=== PATIENT | female | born 1990 | race Caucasian/White ===

== ENCOUNTER 2017-10-29 21:09 | Inpatient (IN) | payer BC ==
[2017-10-29] MEDS ORDERED: MISOPROSTOL 200 MCG TAB PR PRN (21:39)
[2017-10-29] MEDS ORDERED: TERBUTALINE SULFATE 1 MG/ML VIAL IV PRN (21:39)
[2017-10-29] MEDS ORDERED: LR 1,000 ML IV PRN (21:39)
[2017-10-29] MEDS ORDERED: OXYTOCIN/NORMAL SALINE 1,000 ML IV PRN (21:39)
[2017-10-29] MEDS ORDERED: OLIVE OIL 118 ML BTL MISC PRN (21:39)
[2017-10-29] MEDS ORDERED: EPSOM SALT 454 GM TP PRN (21:39)
[2017-10-29] MEDS ORDERED: LIDOCAINE 1% 300 MG/30 ML SDV SC PRN (21:39)
[2017-10-29 22:19] LABS: PLATELET COUNT 190 10^3/uL (150-400)
[2017-10-29] MEDS ORDERED: OXYTOCIN 10 UNIT/ML VIAL ONE (22:44)
[2017-10-29] MEDS ORDERED: TERBUTALINE SULFATE 1 MG/ML VIAL ONE (22:44)
[2017-10-29] MEDS ORDERED: AMMONIA AROMATIC 1 EACH AMP IH ONE (22:44)
[2017-10-29] MEDS ORDERED: LIDOCAINE 1% 300 MG/30 ML SDV ONE (22:44)
[2017-10-29] MEDS ORDERED: OLIVE OIL 118 ML BTL ONE (22:44)
[2017-10-29] MEDS ORDERED: MISOPROSTOL 200 MCG TAB ONE (22:44)
[2017-10-30] MEDS ORDERED: fentaNYL 100 MCG/2 ML INJ ONE (02:52)
[2017-10-30] MEDS ORDERED: PHENYLEPHRINE HCL 100 MCG/ML SYR ONE (02:53)
[2017-10-30] MEDS ORDERED: BUPIVACAINE 0.25% 30 ML SDV ONE (02:53)
--- NOTE | 2017-10-30 02:59 | GHP ---
[f rep st] HISTORY AND PHYSICAL DATE OF ADMISSION: 10/29/2017 HISTORY UPON PRESENTATION: The patient is a 27-year-old, G1, P0, at 40+ weeks' gestation with an est imated due date of 10/26/2017 who presents in early active labor. The patient had milder contraction s beginning about 4:30 p.m., however, really increased in intensity approximately 7:30 p.m., occurrin g every 3 minutes with rapid increase in intensity. Bag of water intact. No bleeding. Good m ovement. The patient's history of GBS culture was negative. Upon presentation to Labor and Delivery , the patient was 3 cm dilated, 70% effaced, -2 station. The patient desired to manage labor initial ly in the tub and has been in the tub since admission. The patient had a followup exam several hours later and was 5 cm dilated, 100% effaced, at -1 station. The patient still desires to use tub as th e management for her pain. CARE: The patient has been with [facility] since transfer from [place] at appro ximately 30 weeks' gestation. The patient has a history of celiac disease and her symptoms have been managed well by just avoiding gluten dietarily. Uncomplicated care. PAST OBSTETRICAL LABS: Maternal blood type B positive with negative antibody screen. RPR nonreactiv e. Rubella immune. Hepatitis B surface antigen negative. HIV negative. Cystic fibrosis, SMA, frag ile X all negative. Initial hematocrit 41% with followup drop to 37%. TSH was normal. Urinalysis a nd culture were normal. Verifi testing was negative with MSAFP negative. 1-hour Glucola was normal. GBS culture negative. PAST MEDICAL HISTORY: Celiac disease as noted above. History of asthma that was felt to be stress i nduced with no issues recently. History of migraines with aura but none in the . History o f an abnormal Pap smear 3 years ago with a colposcopy that was negative. PAST SURGICAL HISTORY: Odontectomy. The patient with a history of a traumatic horseback riding inci dent where she incurred a broken back with a concussion and syncope thereafter. ALLERGIES: Amoxicillin, causing a rash. CURRENT MEDICATIONS: vitamins with stool softener p.r.n. SOCIAL HISTORY: The patient is , lives with her , Carlton. The patient works full-time a [employer]. The patient is a nonsmoker. No alcohol or drug use. REVIEW OF SYSTEMS: A 10-point review done with pertinent positives and negatives noted above. PHYSICAL EXAMINATION: GENERAL: Upon admission, the patient is a well-developed, well-nourished whit e female in distress with painful contractions. VITAL SIGNS: The patient is afebrile. Initial bloo d pressure was 136/88 with followup that was in the 100s over 50s. heart tones have been with spot checks and have previously shown a reactive pattern with good variability and acceleration, with the baseline in the 130s. Contractions every 2-4 minutes. PELVIC: No exam done currently. EXTREM ITIES: Nontender. No edema. ASSESSMENT: Intrauterine at 40+ weeks' gestation with active labor. Bag of water intact. Group B streptococcus negative. Natural pain control with the tub at this time. PLAN: The patient knows her options for pain management and is not interested in changing from the t ub at this time. We will recheck her cervix in an hour or so to ensure that she is making progress. Expect vaginal delivery. /[id number]/MODL
[2017-10-30] MEDS ORDERED: fentaNYL 200 MCG, BUPIVACAINE 0.5% 20 ML in NS 100 ML EP SCH (03:00)
[2017-10-30] MEDS ORDERED: PHENYLEPHRINE HCL 100 MCG/ML SYR IVP PRN (03:37)
[2017-10-30] MEDS ORDERED: ONDANSETRON 4 MG/2 ML VIAL IVP PRN (03:37)
[2017-10-30] MEDS ORDERED: NALOXONE HCL 0.4 MG/ML INJ IVP PRN (03:37)
--- NOTE | 2017-10-30 03:37 | PREANESOB ---
Obstetric Pre-Anesthesia Info - General Info Proposed Procedure: CSE : 1 Para: 0 AMRCUS: 10/26/17 Gestational Age: 40 week(s) and 3 day(s) - Info Status: Full Term Monitors: External FHR Pattern: Reassuring - Labor Status Cervical Dilation per last OB SVE: 5 Magnesium Sulfate in Use: No Indications for Labor Analgesia: Pain Control Labor Epidural: Proposed Anesthesia Allergies/Adverse Reactions: Allergy/AdvReac Type Severity Reaction Status Date / Time amoxicillin Allergy Verified 10/29/17 21:39 Visit Medications: Generic Name Dose Route Start Last Admin Trade Name Freq PRN Reason Stop Dose Admin Lactated Ringer's 1,000 mls @ 0 mls/hr 10/29/17 21:39 Lr IV 10/30/17 21:38 PRN PRN SEE PROTOCOL CONDITIONS Protocol Per Protocol Oxytocin/Sodium Chloride 1,000 mls @ 0 mls/hr 10/29/17 21:39 Pitocin 20 Units/Ns (Premix) IV PRN PRN Post Bleeding Per Protocol Fentanyl 200 mcg/ Bupivacaine 100 mls @ 0 mls/hr 10/30/17 03:00 HCl 20 ml/ Sodium Chloride EP 11/09/17 02:59 CONT MAYRA Protocol As Directed Ibuprofen 600 mg 10/29/17 21:39 Motrin PO 04/27/18 21:38 Q6HRS PRN post , inflammation Lidocaine HCl 300 mg 10/29/17 21:39 Lidocaine Hcl 1% SC 04/27/18 21:38 ONCE PRN episiotomy Magnesium Sulfate 454 gm 10/29/17 21:39 Epsom Salt TP 04/27/18 21:38 Q1H PRN perineal discomfort Misoprostol 800 - 1,000 mcg 10/29/17 21:39 Cytotec MD ONCE PRN Vaginal Atony/Bleeding [place] Oil 118 ml 10/29/17 21:39 Sweet Oil MISC 04/27/18 21:38 ONCE PRN perineal massage Terbutaline Sulfate 0.25 mg 10/29/17 21:39 Brethine IV 04/27/18 21:38 ONCE PRN Tachysystole Discontinued Medications Generic Name Dose Route Start Last Admin Trade Name Freq PRN Reason Stop Dose Admin Bupivacaine HCl Confirm 10/30/17 02:53 Sensorcaine 0.25% Sdv Administered 10/30/17 02:54 Dose 30 ml .ROUTE .STK-MED ONE Fentanyl Confirm 10/30/17 02:52 Sublimaze Administered 10/30/17 02:53 Dose 100 mcg .ROUTE .STK-MED ONE Lidocaine HCl Confirm 10/29/17 22:44 Lidocaine Hcl 1% Administered 10/29/17 22:45 Dose 300 mg .ROUTE .STK-MED ONE Misoprostol Confirm 10/29/17 22:44 Cytotec Administered 10/29/17 22:45 Dose 1,000 mcg .ROUTE .STK-MED ONE [place] Oil Confirm 10/29/17 22:44 Sweet Oil Administered 10/29/17 22:45 Dose 118 ml .ROUTE .STK-MED ONE Oxytocin Confirm 10/29/17 22:44 Pitocin Administered 10/29/17 22:45 Dose 40 unit .ROUTE .STK-MED ONE Phenylephrine HCl Confirm 10/30/17 02:53 Neosynephrine Administered 10/30/17 02:54 Dose 1,000 mcg .ROUTE .STK-MED ONE Terbutaline Sulfate Confirm 10/29/17 22:44 Brethine Administered 10/29/17 22:45 Dose 1 mg .ROUTE .STK-MED ONE - Anesthesia History Response to Local Anesthetics: Normal Anesthesia & Operative History: No Prior Problems Family Anesthesia History: Negative - Social History Substance Use/Abuse: Denies - Vital Signs Height/Weight (Nursing): Height 165.1 cm Weight 68.039 kg - Focused Exam Neck exam: FROM Mallampati Score: Class 2 Mouth exam: normal dental/mouth exam Pulmonary: no respiratory distress Cardiovascular: regular rate and rhythym Labs: 10/29/17 22:00 Patient ABO/Rh B POSITIVE 10/29/17 23:10 - Plan Consent Signed and on Chart: Yes Patient/Guardian Understands and Agrees to Plan: Yes Urgent/Emergent Case: Lashon moctezuma completed preop but documented later for safe timely pt care
[2017-10-30] MEDS ORDERED: LR 500 ML IV SCH (04:00)
[2017-10-30] MEDS ORDERED: fentaNYL 2MCG/ML/BUP 0.1% RTU 100 ML EP SCH (04:00)
[2017-10-30] MEDS ORDERED: OXYTOCIN/NS *STANDARD DOSE PROTOCOL IV SCH (05:30)
--- NOTE | 2017-10-30 07:58 | OBPROG ---
Labor Progress Note Assessment/Plan: Assessment: 27yo with IUP@ 40-4wks Active labor GBS Negative Cat 2 [address] Plan: reassess 1-2hr/PRN anticipate 10/30/17 07:59 Subjective/Intrapartum Course: 10/30/17 07:59 pt doing well, comfortable with RANI. FLOYD Vincent, at BS and supportive. Objective: 10/29/17 22:00 Patient ABO/Rh B POSITIVE 10/29/17 23:10 - SVE Dilation (cm): 9 Effacement (%): 90 Station: -1 Membranes: SROM Amniotic Fluid Color: Clear - Contraction Pattern Assessment Current Contraction Pattern: Regular - FHR Assessment Triplett FHR (bpm): 150 FHR Pattern Variability: Moderate FHR Category: 2 Oxytocin Orders Assessment - Pre-Induction/Augmentation Assessment Gestational Age: 40 week(s) and 3 day(s) ICD10 Worksheet Patient Problems: Problems Problem Status Onset Labor without complication Acute Supervision of normal first Acute - ICD10 Problem Qualifiers (1) Labor without complication (2) Supervision of normal first
--- NOTE | 2017-10-30 09:49 | OBPROG ---
Labor Progress Note Assessment/Plan: Assessment: 27yo with IUP@ 40-4wks Active labor GBS Negative Cat 2 F[address] Plan: reassess 1-2hr, start pushing anticipate 10/30/17 07:59 10/30/17 10:32 Subjective/Intrapartum Course: 10/30/17 07:59 pt doing well, comfortable with RANI. FLOYD Vincent, at BS and supportive. Denies any pressure or urge to push. 10/30/17 10:33 Objective: 10/29/17 22:00 Patient ABO/Rh B POSITIVE 10/29/17 23:10 - SVE Membranes: SROM Amniotic Fluid Color: Clear - Contraction Pattern Assessment Current Contraction Pattern: Regular - FHR Assessment Triplett FHR (bpm): 150 (early and variable decels noted) FHR Pattern Variability: Moderate FHR Category: 2 Oxytocin Orders Assessment - Pre-Induction/Augmentation Assessment Gestational Age: 40 week(s) and 3 day(s) ICD10 Worksheet Patient Problems: Problems Problem Status Onset Labor without complication Acute Supervision of normal first Acute - ICD10 Problem Qualifiers (1) Labor without complication (2) Supervision of normal first
[2017-10-30] MEDS ORDERED: HYDROCORTISONE 0.5% CREAM TP PRN (12:19)
[2017-10-30] MEDS ORDERED: HYDROCODONE/APAP 5/325 TAB PO PRN (12:19)
[2017-10-30] MEDS ORDERED: SIMETHICONE 80 MG TAB CHEW PO PRN (12:19)
[2017-10-30] MEDS ORDERED: ACETAMINOPHEN 325 MG TAB PO PRN (12:19)
--- NOTE | 2017-10-30 12:19 | OBDEL ---
Info Type: Vaginal Presentation at Delivery: Vertex L&D Analgesia/Anesthesia Type: Epidural GBS+: No Intrapartum Medications: Generic Name Dose Route Start Last Admin Trade Name Freq PRN Reason Stop Dose Admin Lactated Ringer's 1,000 mls @ 0 mls/hr 10/29/17 21:39 10/30/17 03:00 Lr IV 10/30/17 21:38 1,000 mls PRN PRN Administration SEE PROTOCOL CONDITIONS Protocol Per Protocol Lactated Ringer's 500 mls @ 0 mls/hr 10/30/17 04:00 10/30/17 05:31 Lr IV 04/28/18 03:59 500 mls CONT MAYRA Administration As Directed Oxytocin/Sodium Chloride 500 mls @ 0 mls/hr 10/30/17 05:30 10/30/17 05:27 Pitocin 30 Units/Ns (Premix) IV 04/28/18 05:29 500 mls CONT MAYRA Administration Protocol Per Protocol Phenylephrine HCl 100 mcg 10/30/17 03:37 10/30/17 08:37 Neosynephrine IVP 04/28/18 03:36 100 mcg .Q2M PRN Administration Hypotension - Hospital Course Intrapartum: 10/30/17 07:59 pt doing well, comfortable with FLOYD Shankar, at BS and supportive. Denies any pressure or urge to push. 10/30/17 10:33 Indications for Delivery: Spontaneous Labor Vaginal Delivery - Delivery Provider Delivery Physician/CNM: Tayler Melgar - Labor and Delivery Onset of Contractions Date: 10/29/17 Onset of Contractions Time: 16:00 Onset of Contractions Type: Augmented Rupture of Membranes Date: 10/29/17 Rupture of Membranes Time: 04:15 Rupture of Membranes Type: Spontaneous Amniotic Fluid Color: Clear Dilation Complete Date: 10/29/17 Dilation Complete Time: 09:30 Placenta Delivery Date: 10/29/17 Placenta Delivery Time: 11:38 Total Hours of Labor: -4 Vaginal Sponge Count Correct: Yes Vaginal Needle Count Correct: Yes Vaginal Sweep Performed: Yes EBL: 150 - Medications Labor Augmentation/Induction Indication: Inadequate Ctx Strength [place] Data MARCUS: 10/26/17 Gestational Age: 41 week(s) and 0 day(s) Triplett Delivery Date: 10/30/17 Delivery Time: 11:30 Sex of Infant: Male [place] Weight (gm): 3548 kg Score (1 Min): 8 Score (5 Min): 9 ICD10 Worksheet Patient Problems: Problems Problem Status Onset Acute blood loss anemia Acute Labor without complication Acute hemorrhage, delivered, current hospitalization Acute Supervision of normal first Acute - ICD10 Problem Qualifiers (1) Labor without complication (2) Supervision of normal first
[2017-10-30] MEDS: IBUPROFEN 600 MG TAB PO PRN ×2 (13:22→19:49)
--- NOTE | 2017-10-30 14:09 | POSTANESTH ---
Post Anesthetic Evaluation Cardiovascular Status: Normal, Stable Respiratory Status: Normal, Stable Level of Consciousness/Mental Status: Can Participate in Eval Pain Control: Adequate, Prn Tx Ordered Nausea/Vomiting Control: Adequate, Prn Tx Ordered Complications Possibly Related to Anesthesia: None Noted Notes: epidural out and level fading.
--- NOTE | 2017-10-30 14:10 | PDMN ---
Medical Necessity Medical necessity: C/M review: Patient meets IN[place] criteria [place] [facility] [id number] Vaginal delivery: viable male .
[2017-10-30] MEDS ORDERED: CLINDAMYCIN 900 MG/DEXTROSE 50 ML IV ONE (15:29)
[2017-10-30] MEDS ORDERED: METHYLERGONOVINE MAL 0.2 MG/ML INJ ONE (15:47)
[2017-10-30] MEDS ORDERED: METHYLERGONOVINE MAL 0.2 MG/ML INJ IM ONE (16:04)
[2017-10-30] MEDS ORDERED: HYDROmorphone HCL/NS 0.5 MG/ML SYR IVP ONE (16:05)
[2017-10-30] MEDS ORDERED: HYDROmorphONE/DILAUDID 2 MG/ML INJ IVP ONE (16:30)
--- NOTE | 2017-10-30 17:52 | SOAPPROG ---
SOAP Progress Note Assessment/Plan: Assessment: 27yo s/p with PPH overdistended bladder Plan: closely monitor bleeding keep maya indwelling, will reassess 8-12 hrs metherine 0.2mg PO q6 x 24 hours routine PP care Marissa Alaniz is aware and agrees with plan of care 10/30/17 17:57 10/30/17 18:01 Subjective: Pt having increasing bleeding and passing of clots. Objective: Vital Signs Temp Pulse Resp BP Pulse Ox 89 14 105/73 97 10/30/17 16:06 10/30/17 16:06 10/30/17 16:06 10/30/17 16:06 Laboratory Results 10/29/17 22:00 10/29/17 10/30/17 10/31/17 05:59 05:59 05:59 Output Total 750 Balance -750 total EBL 1350mL 150mL from delivery approx 1100mL of urine from straight cath 500mL from first episode of bleeding (on L&D unit, manual removal of clots) 700mL from second episode of bleeding (on MB unit) Maya catheter placed with 800mL instantly- will keep in place Physical Exam - Physical Exam General Appearance: WD/WN, alert, no apparent distress Neck: supple Abdomen: non-tender (uterus firm but deviated to the right @ U+1 ), soft Pelvic Exam: vaginal bleeding (large amount of VB with large clots. (approx 500) , nurse reports approx ) Skin: normal color, warm/dry Neuro/Psych: alert, normal mood/affect, oriented x 3 ICD10 Worksheet Patient Problems: Problems Problem Status Onset Labor without complication Acute Supervision of normal first Acute - ICD10 Problem Qualifiers (1) Labor without complication (2) Supervision of normal first
[2017-10-30] MEDS: DOCUSATE SODIUM 100 MG CAP PO PRN (19:48)
[2017-10-30] MEDS: IRON POLYSAC/IRON HEME 28 MG TAB PO SCH (19:49)
[2017-10-30] MEDS: METHYLERGONOVINE MAL 0.2 MG TAB PO SCH ×2 (23:08→23:56)
[2017-10-31] MEDS: IBUPROFEN 600 MG TAB PO PRN ×4 (01:23→21:26)
[2017-10-31] MEDS: METHYLERGONOVINE MAL 0.2 MG TAB PO SCH ×2 (05:55→12:47)
[2017-10-31] MEDS: IRON POLYSAC/IRON HEME 28 MG TAB PO SCH ×2 (08:19→21:26)
[2017-10-31] MEDS: DOCUSATE SODIUM 100 MG CAP PO PRN ×2 (08:19→21:26)
--- NOTE | 2017-10-31 12:27 | OBPP ---
Progress Note Assessment/Plan: Assessment: PPD 1 s/p with PPH in setting of overdistended bladder bladder has been emptied by catheter with Godd uop - cath removed recently hct stable after bld at 30 Plan: routine care, iron BID - complete methergine for 24 hr course 10/31/17 12:24 Subjective/ Course: 10/31/17 12:26 pt doing well. so thankful. baby is latching ok and working with . bld is lessened. just had catheter out and hasn't voided yet. able to ambulate and not too dizzy. got some sleep. Objective: 10/31/17 11:35 Patient ABO/Rh B POSITIVE 10/29/17 23:10 Temp Pulse Resp BP Pulse Ox 36.2 C 82 14 106/71 92 10/31/17 08:00 10/31/17 08:00 10/31/17 08:00 10/31/17 08:00 10/31/17 08:00 Uterine Position/Fundal Height: Umbilicus -1 Uterine Tone: Firm Physical Exam - Physical Exam Abdomen: non-tender, soft, other (FF at umb -1) Extremities: non-tender, pedal edema (minimal) Skin: normal color, warm/dry Neuro/Psych: alert, normal mood/affect
[2017-11-01] MEDS: IBUPROFEN 600 MG TAB PO PRN ×2 (04:13→11:29)
[2017-11-01] MEDS: DOCUSATE SODIUM 100 MG CAP PO PRN (08:40)
[2017-11-01] MEDS: IRON POLYSAC/IRON HEME 28 MG TAB PO SCH (08:40)
[2017-11-01 10:00] VITALS: BP 115/82
--- NOTE | 2017-11-01 11:02 | OBPP ---
Progress Note Assessment/Plan: Assessment: Plan: Subjective/ Course: 10/31/17 12:26 pt doing well. so thankful. baby is latching ok and working with . bld is lessened. just had catheter out and hasn't voided yet. able to ambulate and not too dizzy. got some sleep. Objective: 10/31/17 11:35 Patient ABO/Rh B POSITIVE 10/29/17 23:10 Temp Pulse Resp BP Pulse Ox 36.4 C 79 16 115/82 H 97 11/01/17 09:00 11/01/17 09:00 11/01/17 09:00 11/01/17 09:00 10/31/17 20:00
--- NOTE | 2017-11-01 11:04 | OBGCSDC ---
General Delivery Information - General Info : 1 Para: 1 Abortions: 0 L&D Analgesia/Anesthesia Type: Epidural Admission Date: 10/29/17 Labs: Patient ABO/Rh B POSITIVE 10/29/17 23:10 Hct 30.6 % (38.0-47.0) L 10/31/17 11:35 - Hospital Course Intrapartum: 10/30/17 07:59 pt doing well, comfortable with RANI. FLOYD Vincent, at BS and supportive. Denies any pressure or urge to push. 10/30/17 10:33 : 10/31/17 12:26 pt doing well. so thankful. baby is latching ok and working with . bld is lessened. just had catheter out and hasn't voided yet. able to ambulate and not too dizzy. got some sleep. Vaginal - Diagnosis Amniotic Fluid Color: Clear Data MARCUS: 10/26/17 Gestational Age: 40 week(s) and 6 day(s) Triplett Delivery Date: 10/30/17 Delivery Time: 11:30 Sex of : Male [place] Weight (gm): 3548 kg Score (1 Min): 8 Score (5 Min): 9 Discharge Information - Discharge Information Prescriptions: Iron Polysacch/Iron Heme Polyp [Bifera] 28 mg PO BID #60 tab Nitrofurantoin Monohyd/M-Cryst [Macrobid 100 mg Capsule] 100 mg PO BID 7 Days capsule Condition: Good
== END 2017-11-01 15:30 | disposition home or self-care (01) | DRG 774 ==
LOC: FLD 21:09 → OBSVTOIN 21:09 → FOB 10-30 15:40
PROVIDERS: ADMIT Obstetrics & Gynecology; ATTEND Obstetrics & Gynecology
PROC: 10E0XZZ Delivery of Products of Conception, External Approach (ICD-10-PCS; principal; 2017-10-29)
DX: O72.1 Other immediate postpartum hemorrhage (principal); O90.89 Other complications of the puerperium, not elsewhere classified; N32.89 Other specified disorders of bladder; O48.0 Post-term pregnancy; Z3A.41 41 weeks gestation of pregnancy; Z37.0 Single live birth
CPT/HCPCS: J1170; J2210; J2370; J2590; J3010; J3105

== ENCOUNTER → 2018-12-26 | Outpatient (CLI) | payer BC | LOC: EMCIMAGING 16:07 ==